=== PATIENT | male | born 1990 | race Caucasian/White ===

== ENCOUNTER 2018-07-11 10:43 | Emergency (ER) | payer SELFPAY ==
[2018-07-11] MEDS ORDERED: IBUPROFEN 800 MG TABLET PO ONE ×2 (11:17→12:03)
--- NOTE | 2018-07-11 11:23 | ER Document Report ---
HPI - HPI Patient complains to provider of: Fever Time Seen by Provider: 07/11/18 11:09 Pain Level: 5 Context: Patient is an otherwise healthy 28-year-old male presents to the emergency department for cough, headache, fever for the last 2 days. Patient's is also in the emergency department with similar symptoms. Patient's denying any chest pain, shortness of breath, abdominal pain. Past medical history: None Medications: None Allergies: None - CONSTITUTIONAL Constitutional: REPORTS: Chills - NEURO Neurology: REPORTS: Headache Past Medical History - General Information source: Patient - Social History Smoking Status: Current Some Day Smoker Chew tobacco use (# tins/day): No Frequency of alcohol use: None Drug Abuse: None Family History: Reviewed & Not Pertinent Patient has suicidal ideation: No Patient has homicidal ideation: No Renal/ Medical History: Denies: Hx Peritoneal Dialysis Vertical Provider Document - CONSTITUTIONAL Agree With Documented VS: Yes Notes: GENERAL: Alert, interacts well. No acute distress. HEAD: Normocephalic, atraumatic. No frontal or maxillary sinus tenderness noted EYES: Pupils equal, round, and reactive to light. Extraocular movements intact. ENT: Oral mucosa moist, tongue midline. Nares patent, swollen turbinates noted bilaterally, TM's intact, nonerythematous, nonbulging bilaterally. Pharynx within normal limits no palatal petechiae or exudate noted NECK: Full range of motion. Supple. Trachea midline. No lymphadenopathy appreciated LUNGS: Clear to auscultation bilaterally, no wheezes, rales, or rhonchi. No respiratory distress. HEART: Regular rate and rhythm. No murmur ABDOMEN: Soft, non-tender. Non-distended. Bowel sounds present in all 4 quadrants. EXTREMITIES: Moves all 4 extremities spontaneously. No edema, normal radial and dorsalis pedis pulses bilaterally. No cyanosis. BACK: no cervical, thoracic, lumbar midline tenderness. No saddle anesthesia, normal distal neurovascular exam. NEUROLOGICAL: Alert and oriented x3. Normal speech. cranial nerves II through XII grossly intact. PSYCH: Normal affect, normal mood. SKIN: Warm, dry, normal turgor. No rashes or lesions noted. - INFECTION CONTROL TRAVEL OUTSIDE OF THE [place] IN LAST 30 DAYS: No Course - Re-evaluation Re-evalutation: 07/11/18 11:23 Patient was noted to be febrile in the emergency department, treated with Motrin. Patient is able to p.o. fluids with no difficulty. 07/11/18 11:59 Patient's chest x-ray reveals no signs of pneumonia, pneumothorax, rib fracture. Nurse brings to my attention that after antipyretics patient vomited. Patient's heart rate and temperature have gone up at this time. Discussed use of nausea medication and then antipyretics. Patient's denying any nausea feeling at this time stated "I do not know why vomited." 07/11/18 13:11 After Zofran administration patient is able to p.o. fluids with no difficulties. Patient's no longer febrile or tachycardic in the emergency room. Patient stable for discharge. - Vital Signs Vital signs: Temp Pulse Resp BP Pulse Ox 101.1 F H 118 H 20 119/76 97 07/11/18 10:52 07/11/18 10:52 07/11/18 10:52 07/11/18 10:52 07/11/18 10:52 Discharge - Discharge Clinical Impression: Upper respiratory infection Qualifiers: URI type: unspecified viral URI Qualified Code(s): J06.9 - Acute upper respi ratory infection, unspecified Vomiting Qualifiers: Vomiting type: unspecified Vomiting Intractability: non-intractable Nausea presence: without nausea Qualified Code(s): R11.11 - Vomiting without nausea Condition: Stable Disposition: HOME, SELF-CARE Instructions: Fever ([facility]), Upper Respiratory Illness ([facility]), Viral Syndrome ([facility]), Vomiting ([facility]) Additional Instructions: As we discussed your chest x-ray reveals no signs of abnormalities. You likely have an upper respiratory infection. These are typically caused by viruses and do not respond to antibiotics. Please make sure you take [id number] Tylenol and Motrin for generalized body aches and fevers. Please also stay well-hydrated and get plenty of rest. Please use prescription medications as prescribed. Please follow-up with your primary care provider in the next 24-48 hours return to the emergency room should you have any other concerning symptoms. Prescriptions: Benzonatate [Tessalon Perles 100 mg Capsule] 100 mg PO Q8HP PRN #40 capsule PRN Reason: Mometasone Furoate [Nasonex] 1 spray NS Q12 #1 spray.pump Ondansetron [Zofran Odt 4 mg Tablet] 1 - 2 tab PO Q4H PRN #15 tab.rapdis PRN Reason: For Nausea/Vomiting Forms: Return to Work Referrals: [facility] [Provider Group] - Follow up as needed
--- NOTE | 2018-07-11 11:52 | RADIOLOGY REPORT (SQ) ---
EXAM DESCRIPTION: CHEST 2 VIEWS COMPLETED DATE/TIME: 07/11/2018 11:39 am REASON FOR STUDY: cough/fever COMPARISON: None. TECHNIQUE: Frontal and lateral radiographic views of the chest acquired. NUMBER OF VIEWS: Two view. LIMITATIONS: None. FINDINGS: LUNGS AND PLEURA: No opacities, masses or pneumothorax. No pleural effusion. MEDIASTINUM AND HILAR STRUCTURES: No masses or contour abnormalities. HEART AND VASCULAR STRUCTURES: Heart normal size. No evidence for failure. BONES: No acute findings. HARDWARE: None in the chest. OTHER: No other significant finding. IMPRESSION: NO SIGNIFICANT RADIOGRAPHIC FINDING IN THE CHEST. TECHNICAL DOCUMENTATION: JOB ID: [id number] [employer]- All Rights Reserved Reading location - IP/workstation name: [email or web address]
[2018-07-11] MEDS ORDERED: ONDANSETRON 4 MG TAB.RAPDIS PO ONE (12:03)
[2018-07-11 13:14] VITALS: BP 125/78
== END 2018-07-11 13:16 | disposition home or self-care (01) ==
LOC: ER 10:43
DX: J06.9 Acute upper respiratory infection, unspecified (principal); R11.11 Vomiting without nausea; R50.9 Fever, unspecified; R51 Headache; F17.200 Nicotine dependence, unspecified, uncomplicated
CPT/HCPCS: 99283; 71046; S0119

== ENCOUNTER 2020-04-26 14:47 | Emergency (ER) | payer SELFPAY ==
[2020-04-26 14:52] VITALS: BP 145/70
--- NOTE | 2020-04-26 15:14 | ER Document Report ---
ED Medical Screen (RME) - General Chief Complaint: Groin Pain Stated Complaint: GROIN PAIN Time Seen by Provider: 04/26/20 15:05 Notes: Patient is a 29-year-old male presents emergency department with a chief complaint of right groin pain. Patient reports that about 2 weeks ago he noticed right groin pain, at times he feels like there is a bulge. He states he does have right testicular pain. Denies testicular swelling. Denies urinary sy mptoms. Denies abdominal pain. Denies any recent heavy lifting or trauma. TRAVEL OUTSIDE OF THE [place] IN LAST 30 DAYS: No - Related Data Allergies/Adverse Reactions: No Known Allergies Allergy (Verified 07/11/18 10:45) Past Medical History Renal/ Medical History: Denies: Hx Peritoneal Dialysis Physical Exam - Vital signs Vitals: Temp Pulse Resp BP Pulse Ox 97.8 F 87 16 145/70 H 99 04/26/20 14:50 04/26/20 14:50 04/26/20 14:50 04/26/20 14:50 04/26/20 14:50 Course - Re-evaluation Re-evalutation: 04/26/20 15:13 Small bulge was noted in the right groin area. This was somewhat difficult to palpate in the triage area. Patient require thorough exam once placed on a stretcher. Due to the testicular pain will go ahead and order a testicular ultrasound as well as urinalysis. I have greeted and performed a rapid initial assessment of this patient. A comprehensive ED assessment and evaluation of the patient, analysis of test results and completion of the medical decision making process will be conducted by additional ED providers. - Vital Signs Vital signs: Temp Pulse Resp BP Pulse Ox 97.8 F 87 16 145/70 H 99 04/26/20 14:50 04/26/20 14:50 04/26/20 14:50 04/26/20 14:50 04/26/20 14:50
[2020-04-26 15:50] LABS: APPEARANCE,URINE CLEAR; BILIRUBIN,URINE NEGATIVE (NEGATIVE); COLOR,URINE YELLOW; GLUCOSE, URINE NEGATIVE (NEGATIVE); KETONES,URINE NEGATIVE (NEGATIVE); LEUKOCYTE ESTERASE,URINE NEGATIVE (NEGATIVE); NITRITE,URINE NEGATIVE (NEGATIVE); PROTEIN,URINE NEGATIVE (NEGATIVE); URINE SPECIFIC GRAVITY 1.025; UROBILINOGEN,URINE NEGATIVE mg/dL (<2.0)
--- NOTE | 2020-04-26 16:30 | RADIOLOGY REPORT (SQ) ---
EXAM DESCRIPTION: U/S SCROTUM W/DOPPLER IMAGES COMPLETED DATE/TIME: 04/26/2020 4:04 pm REASON FOR STUDY: right groin and right testicular pain COMPARISON: None. TECHNIQUE: Static and realtime yusuf scale imaging of the scrotum and testes. Selected color Doppler and spectral images recorded to document blood flow. Additional sonographic evaluation was performe d of the right inguinal region. LIMITATIONS: None. FINDINGS: RIGHT: TESTICLE: Normal size. Normal echotexture. Normal blood flow. No mass. EPIDIDYMIS: Normal. HYDROCELE OR VARICOCELE: Trace simple appearing hydrocele. No varicocele demonstrated. HERNIA OR EXTRA-TESTICULAR MASS: Fat containing right inguinal hernia. OTHER: No other significant finding. LEFT: TESTICLE: Normal size. Normal echotexture. Normal blood flow. No mass. EPIDIDYMIS: Normal. HYDROCELE OR VARICOCELE: No hydrocele or varicocele demonstrated. HERNIA OR EXTRA-TESTICULAR MASS: No. OTHER: No other significant finding. IMPRESSION: Fat containing right inguinal hernia. TECHNICAL DOCUMENTATION: JOB ID: [id number] [employer]- All Rights Reserved Reading location - IP/workstation name: [email or web address]
--- OUTSIDE RECORDS SUMMARY | 2020-04-26 17:32 | XMS REPORT ---
:1990 [facility] [place] [address] [place] [address] Care Team Providers Name Role Phone Family, No Primary Care Physician Unavailable Carson Nj Attending Clinician Unavailable Allergies, Adverse Reactions, Alerts This patient has no known allergies or adverse reactions. Medications This patient has no known medications. Problems This patient has no known problems. Procedures This patient has no known procedures. Results This patient has no known results. Encounters Start End Encounter Admission Attending Care Care Encounter Date/Time Date/Time Type Type Clinicians Facility Department ID 2017-05-24 2017-05-24 Emergency EM SUKHI Nj [facility] [id number] 20:19:00 22:31:00 Carson Quiroz Payers Payer Name Policy Type Policy Number Effective Date Expiration D ate SP Social History This patient has no known social history. Vital Signs This patient has no known vital signs.
[2020-04-26] MEDS ORDERED: HYDROCODONE/ACETAMINOPHEN 5-325 MG TABLET PO ONE (17:56)
--- NOTE | 2020-04-26 17:59 | ER Document Report ---
HPI - HPI Patient complains to provider of: Right groin pain Time Seen by Provider: 04/26/20 15:05 Onset: Other - Weeks Onset/Duration: Waxing and waning Pain Level: Denies Context: Patient presents complaining of painful bulge that comes and goes to right inguinal area for the past 2 weeks. Patient states area is presently resolved and denies any significant pain at this time. Patient denies any fever, nausea, vomiting or diarrhea. Patient denies any urinary symptoms. Associated Symptoms: Other - Right inguinal pain Exacerbated by: Movement Relieved by: Denies Similar symptoms previously: No Recently seen / treated by doctor: No - ROS ROS below otherwise negative: Yes Systems Reviewed and Negative: Yes All other systems reviewed and negative - CONSTITUTIONAL Constitutional: DENIES: Fever, Chills - GASTROINTESTINAL Gastrointestinal: DENIES: Abdominal Pain, Nausea, Patient vomiting - URINARY Urinary: DENIES: Dysuria - MUSCULOSKELETAL Musculoskeletal: DENIES: Back Pain - DERM Skin Color: Normal Skin Problems: None Past Medical History - General Information source: Patient - Social History Smoking Status: Never Smoker Frequency of alcohol use: None Drug Abuse: None Occupation: Construction Lives with: Family Family History: Reviewed & Not Pertinent - Medical History Medical History: Negative Renal/ Medical History: Denies: Hx Peritoneal Dialysis Surgical Hx: Negative Vertical Provider Document - CONSTITUTIONAL Agree With Documented VS: Yes Exam Limitations: No Limitations General Appearance: WD/WN, No Apparent Distress - INFECTION CONTROL TRAVEL OUTSIDE OF THE [place] IN LAST 30 DAYS: No - HEENT HEENT: Atraumatic, Normocephalic - NECK Neck: Normal Inspection - RESPIRATORY Respiratory: Breath Sounds Normal, No Respiratory Distress - CARDIOVASCULAR Cardiovascular: Regular Rate, Regular Rhythm - GI/ABDOMEN Gastrointestinal: Abdomen Soft, Abdomen Non-Tender, No Organomegaly, Normal Bowel Sounds - REPRODUCTIVE Notes: Right inguinal tenderness, palpable defect to right inguinal area, no palpable bulge, no testicular tenderness, no abdominal tenderness - BACK Back: Normal Inspection. negative: CVA Tenderness-Right, CVA Tenderness-Left - MUSCULOSKELETAL/EXTREMETIES Musculoskeletal/Extremeties: MARTIN ELIZABETH - NEURO Level of Consciousness: Awake, Alert, Appropriate Motor/Sensory: No Motor Deficit - DERM Integumentary: Warm, Dry, No Rash Course - Re-evaluation Re-evalutation: 04/26/20 17:59 Patient with reducible right inguinal hernia, ultrasound reviewed, no evidence of any torsion. Patient abdomen soft nontender. Discussed worsening signs or symptoms of patient should return immediately for. Discussed measures to avoid to prevent worsening of hernia. Patient verbalized understanding and is agreeable discharge plan of care. - Vital Signs Vital signs: Temp Pulse Resp BP Pulse Ox 97.8 F 87 16 145/70 H 99 04/26/20 14:50 04/26/20 14:50 04/26/20 14:50 04/26/20 14:50 04/26/20 14:50 - Laboratory Results Laboratory Results Interpreted: 04/26/20 15:14 Urine Ascorbic Acid 40 H 04/26/20 17:59 Labs- All tests 24 hr 04/26/20 15:14 Urine Color YELLOW Urine Appearance CLEAR Urine pH 5.0 Ur Specific [place] 1.025 Urine Protein NEGATIVE Urine Glucose (UA) NEGATIVE Urine Ketones NEGATIVE Urine Blood NEGATIVE Urine Nitrite NEGATIVE Urine Bilirubin NEGATIVE Urine Urobilinogen NEGATIVE Ur Leukocyte Esterase NEGATIVE Urine WBC (Auto) 2 Urine RBC (Auto) 0 Squamous Epi Cells Auto <1 Urine Mucus (Auto) MANY Urine Ascorbic Acid 40 H Critical Laboratory Results Reviewed: No Critical Results - Radiology Results Critical Radiology Results Reviewed: No Critical Results Discharge - Discharge Clinical Impression: Inguinal hernia Qualifiers: Obstruction and gangrene presence: without obstruction or gangrene Laterality: unilateral Recurrence: not specified as recurrent Qualified Code(s): K40.90 - Unilateral inguinal hernia, without obstruction or gangrene, not specified as recurrent Condition: Stable Disposition: HOME, SELF-CARE Instructions: Hernia ([facility]) Additional Instructions: Return immediately for any new or worsening symptoms: Change in skin color, persistent bulge, worsening pain, vomiting, blood in stool or any other concerning symptoms Followup with your primary care provider, call tomorrow to make a followup appointment Follow-up with the surgical clinic for definitive management of your hernia Referrals: [facility] [Provider Group] - Follow up in 1 week
== END 2020-04-26 18:28 | disposition home or self-care (01) ==
LOC: ER 14:47
DX: K40.90 Unilateral inguinal hernia, without obstruction or gangrene, not specified as recurrent (principal)
CPT/HCPCS: 76870; 81001; 93976; 99284